=== PATIENT | male | born 1950 | race Caucasian/White ===

== ENCOUNTER 2021-03-09 12:41 | Emergency (ER) | payer MEDICARE, OTHER ==
[~2021-03-09] VITALS: Ht 182.9 cm; Wt 102.2 kg
[2021-03-09 12:45] VITALS: BP 133/75
[2021-03-09] MEDS ORDERED: methylPREDNISolone SOD SUCC PF 125 MG/2 ML VIAL. IV ONE (13:00)
[2021-03-09] MEDS ORDERED: IV NORMAL SALINE 1000ML BAG 1,000 ML IV ONE (13:00)
[2021-03-09] MEDS ORDERED: FAMOTIDINE 20 MG/2 ML VIAL IVP ONE (13:30)
--- NOTE | 2021-03-09 15:03 | PHYS DOC ---
Past Medical History Past Surgical History: No Surgical History Smoking Status: Unknown if ever smoked Alcohol Use: None General Adult EDM: Chief Complaint: ALLERGIC REACTION HPI: HPI: Patient is a 71 year old male patient who presents to the ED today to be evaluated after being bit by hornets prior to coming to the ED. Patient states he got released on the right wrist and bilateral ears. Patient denies any symptoms in the ED but states when EMS arrived he was diaphoretic. He was given Benadryl. He states his mouth is dry after the Benadryl. Patient denies any difficulty breathing, throat or tongue swelling Review of Systems: Review of Systems: Constitutional: Denies fever or chills. [] Eyes: Denies change in visual acuity. [] HENT: Denies nasal congestion or sore throat. [] Respiratory: Reports being bit by hornets. Denies cough or shortness of breath. [] Cardiovascular: Denies chest pain or edema. [] GI: Denies abdominal pain, nausea, vomiting, bloody stools or diarrhea. [] : Denies dysuria. [] Musculoskeletal: Denies back pain or joint pain. [] Integument: Reports bites to bilateral ears and the right wrist Neurologic: Denies headache, focal weakness or sensory changes. [] . [] Psychiatric: Denies depression or anxiety. [] Heart Score: C/O Chest Pain: N/A Risk Factors: Risk Factors: DM, Current or recent (<one month) smoker, HTN, HLP, family history of CAD, obesity. Risk Scores: Score 0 - 3: 2.5% MACE over next 6 weeks - Discharge Home Score 4 - 6: 20.3% MACE over next 6 weeks - Admit for Clinical Observation Score 7 - 10: 72.7% MACE over next 6 weeks - Early Invasive Strategies Current Medications: Current Medications Medications (Trade) Dose Ordered Sig/Yessica Start Time Stop Time Status Last Admin Dose Admin Famotidine (Pepcid Vial) 20 mg 1X ONCE 03/09/21 13:30 03/09/21 13:31 DC 03/09/21 12:58 20 MG Methylprednisolone Sodium Succinate (SOLU-Medrol 125MG VIAL) 125 mg 1X ONCE 03/09/21 13:00 03/09/21 13:01 DC 03/09/21 12:55 125 MG Sodium Chloride 1,000 ml @ 1,000 mls/hr 1X ONCE 03/09/21 13:00 03/09/21 13:59 DC 03/09/21 12:56 1,000 MLS/HR Allergies: Allergies: Allergies Coded Allergies Type Severity Reaction Last Updated Verified No Known Drug Allergies 03/09/21 No Physical Exam: PE: Constitutional: Well developed, well nourished, no acute distress, non-toxic appearance. [] HENT: Normocephalic, atraumatic, bilateral external ears normal, oropharynx moist, no oral exudates, nose normal. Airway is open, no throat pain or lip swelling. Eyes: PERRLA, EOMI, conjunctiva normal, no discharge. [] Neck: Normal range of motion, no tenderness, supple, no stridor. [] Cardiovascular:Heart rate regular rhythm, no murmur [] Lungs & Thorax: Bilateral breath sounds clear to auscultation [] Abdomen: Bowel sounds normal, soft, no tenderness, no masses, no pulsatile masses. [] Skin: Slight redness noted to bilateral helix and pinna in the right scaphoid region. Back: No tenderness, no CVA tenderness. [] Extremities: No tenderness, no cyanosis, no clubbing, ROM intact, no edema. [] Neurologic: Alert and oriented X 3, normal motor function, normal sensory function, no focal deficits noted. [] Psychologic: Affect normal, judgement normal, mood normal. [] Current Patient Data: Vital Signs: Vital Signs Date Time Temp Pulse Resp B/P (MAP) Pulse Ox O2 Delivery O2 Flow Rate FiO2 03/09/21 12:45 97.6 75 18 133/75 (94) 97 Room Air 97.6 EKG: EKG: [] Radiology/Procedures: Radiology/Procedures: [] Course & Med Decision Making: Course & Med Decision Making Pertinent Labs and Imaging studies reviewed. (See chart for details) This a 71-year-old male patient presented to the ED today after being bit by hornets. Patient was diaphoretic when this happened, was given Benadryl on the scene. Arrives in the ED complaining of dry mouth otherwise airways open, no throat or tongue swelling. Lungs are clear. O2 sats at 97% on room air, blood pressure 130s over 70s. Patient was given Solu-Medrol, Pepcid and IV fluids. Currently feeling normal, patient has been observed in the ED for over 2 hours 30 minutes with no symptoms. Discharge to home with prednisone for 4 more days and instructed to take Benadryl and Pepcid as well. Provided return precautions. Jcarlos Disclaimer: Jcarlos Disclaimer: This electronic medical record was generated, in whole or in part, using a voice recognition dictation system. Departure Departure Impression: Primary Impression: Hornet sting Qualified Codes: T63.451A - Toxic effect of venom of hornets, accidental (unintentional), initial encounter Disposition: HOME / SELF CARE / HOMELESS Condition: STABLE Referrals: LARRY THEODORE MD (PCP) follow up in 1 week Patient Instructions: Bee, Wasp, or Hornet Sting Additional Instructions: You were seen in the emergency room after being bit by hornets. Take the prescribed medications as ordered. Consider taking Benadryl at any point you have allergic reaction symptoms including itching, swelling. Come back to the ED at any point symptoms worsen. Scripts Famotidine (FAMOTIDINE) 20 Mg Tablet 20 MG PO DAILY, #4 TAB Prov: VARSHA LUCAS APRN 03/09/21 Prednisone (PREDNISONE) 50 Mg Tablet 1 TAB PO DAILY, #4 TAB Prov: VARSHA LUCAS APRN 03/09/21 VARSHA LUCAS APRN Mar 09, 2021 15:03
[2021-03-09] MEDS ORDERED: FAMO20TA5 PO (15:27)
[2021-03-09] MEDS ORDERED: PRED50TA PO (15:27)
== END 2021-03-09 15:26 | disposition home or self-care (01) ==
LOC: ER 12:41
DX: T63.451A Toxic effect of venom of hornets, accidental (unintentional), initial encounter (principal); T63.411A Toxic effect of venom of centipedes and venomous millipedes, accidental (unintentional), initial encounter; Y92.89 Other specified places as the place of occurrence of the external cause
CPT/HCPCS: 96361; 96374; 96375; 99284; J2930; J3490; J7030

== ENCOUNTER 2021-10-29 10:22 | Emergency (ER) | payer MEDICARE, OTHER ==
[~2021-10-29] VITALS: Ht 182.9 cm; Wt 99.0 kg
[~2021-10-29 10:22] MED LIST: FAMO20TA5 PO; PRED50TA PO
[2021-10-29 10:42] VITALS: BP 177/85
[2021-10-29] MEDS ORDERED: diazePAM 5 MG TABLET PO ONE (10:45)
--- NOTE | 2021-10-29 10:58 | PHYS DOC ---
Past Medical History Past Surgical History: No Surgical History Smoking Status: Never Smoker Alcohol Use: None Adult General Chief Complaint Chief Complaint: DIZZY/LIGHT HEADED HPI HPI Patient is a 71 year old male presenting to the emergency department for evaluation of vertigo that has been going on for at least the past 2 to 3 days. Patient says that he has a sensation that the room is moving. He tried explaining it to me that he feels like he put on glasses that are not a prescription for him and that he stands up and tries to walk and everything is moving and feeling abnormal when he tries to ambulate. He says that the sympto ms get worse when he moves his head or tries to stand up and walk. He denies any vision changes nausea vomiting confusion unilateral weakness numbness or tingling he says that he saw his primary care provider. And was prescribed a medication for this but he does not know the name of it but he says it has been helping. He says that his primary care provider told him that if he was uncomfortable at all that he should come to the emergency department and get a CT scan of his head to rule out a head bleed. Patient has no headache or head trauma. He is in no acute distress with normal vital signs other than hypertension noted. Review of Systems Review of Systems Constitutional: Denies fever or chills [] Eyes: Denies change in visual acuity, redness, or eye pain [] HENT: Denies nasal congestion or sore throat [] Respiratory: Denies cough or shortness of breath [] Cardiovascular: No additional information not addressed in HPI [] GI: Denies abdominal pain, nausea, vomiting, bloody stools or diarrhea [] : Denies dysuria or hematuria [] Musculoskeletal: Denies back pain or joint pain [] Integument: Denies rash or skin lesions [] Neurologic: Denies headache, focal weakness or sensory changes. Positive dizziness All other systems were reviewed and found to be within normal limits, except as documented in this note. Current Medications Current Medications Current Medications Medications (Trade) Dose Ordered Sig/Yessica Start Time Stop Time Status Last Admin Dose Admin Diazepam (Valium) 5 mg 1X ONCE 10/29/21 10:45 10/29/21 10:46 DC 10/29/21 10:57 5 MG Allergies Allergies Allergies Coded Allergies Type Severity Reaction Last Updated Verified No Known Drug Allergies 03/09/21 No Physical Exam Physical Exam Constitutional: Well developed, well nourished, no acute distress, non-toxic appearance. [] HENT: Normocephalic, atraumatic, bilateral external ears normal, oropharynx moist, no oral exudates, nose normal. [] Eyes: PERRLA, EOMI, conjunctiva normal, no discharge. [] Neck: Normal range of motion, no tenderness, supple, no stridor. [] Cardiovascular:Heart rate regular rhythm, no murmur [] Lungs & Thorax: Bilateral breath sounds clear to auscultation [] Abdomen: Bowel sounds normal, soft, no tenderness, no masses, no pulsatile masses. [] Skin: Warm, dry, no erythema, no rash. [] Back: No tenderness, no CVA tenderness. [] Extremities: No tenderness, no cyanosis, no clubbing, ROM intact, no edema. [] Neurologic: Alert and oriented X 3, normal motor function, normal sensory function, no focal deficits noted. [] Psychologic: Affect normal, judgement normal, mood normal. [] Current Patient Data Vital Signs Vital Signs Date Time Temp Pulse Resp B/P (MAP) Pulse Ox O2 Delivery O2 Flow Rate FiO2 10/29/21 10:42 98.1 79 16 177/85 (115) 97 Room Air 98.1 Lab Values Laboratory Tests Test 10/29/21 10:44 White Blood Count 8.7 x10^3/uL (4.0-11.0) Red Blood Count 4.50 x10^6/uL (4.30-5.70) Hemoglobin 13.4 g/dL (13.0-17.5) Hematocrit 38.4 % (39.0-53.0) L Mean Corpuscular Volume 85 fL (79-100) Mean Corpuscular Hemoglobin 30 pg (25-35) Mean Corpuscular Hemoglobin Concent 35 g/dL (31-37) Red Cell Distribution Width 12.5 % (11.5-14.5) Platelet Count 305 x10^3/uL (140-400) Neutrophils (%) (Auto) 78 % (31-73) H Lymphocytes (%) (Auto) 13 % (24-48) L Monocytes (%) (Auto) 7 % (0-9) Eosinophils (%) (Auto) 1 % (0-3) Basophils (%) (Auto) 1 % (0-3) Neutrophils # (Auto) 6.8 x10^3/uL (1.8-7.7) Lymphocytes # (Auto) 1.1 x10^3/uL (1.0-4.8) Monocytes # (Auto) 0.6 x10^3/uL (0.0-1.1) Eosinophils # (Auto) 0.1 x10^3/uL (0.0-0.7) Basophils # (Auto) 0.1 x10^3/uL (0.0-0.2) Sodium Level 139 mmol/L (136-145) Potassium Level 3.8 mmol/L (3.5-5.1) Chloride Level 104 mmol/L (98-107) Carbon Dioxide Level 29 mmol/L (21-32) Anion Gap 6 (6-14) Blood Urea Nitrogen 21 mg/dL (8-26) Creatinine 1.5 mg/dL (0.7-1.3) H Estimated GFR (Cockcroft-Gault) 46.4 BUN/Creatinine Ratio 14 (6-20) Glucose Level 132 mg/dL (70-99) H Calcium Level 9.4 mg/dL (8.5-10.1) Total Bilirubin 0.7 mg/dL (0.2-1.0) Aspartate Amino Transferase (AST) 25 U/L (15-37) Alanine Aminotransferase (ALT) 45 U/L (16-63) Alkaline Phosphatase 95 U/L (46-116) Troponin I High Sensitivity 9 ng/L (4-75) Total Protein 7.3 g/dL (6.4-8.2) Albumin 4.1 g/dL (3.4-5.0) Albumin/Globulin Ratio 1.3 (1.0-1.7) Thyroid Stimulating Hormone (TSH) 1.999 uIU/mL (0.358-3.74) Laboratory Tests 10/29/21 10:44 Laboratory Tests 10/29/21 10:44 EKG EKG Sinus rhythm at 82 bpm with normal axis no ST elevation or depression normal T waves. Radiology/Procedures Radiology/Procedures [] Course & Med Decision Making Course & Med Decision Making I told patient that an intracranial hemorrhage is very unlikely with his presenting symptoms and that most likely has peripheral vertigo given the classic symptoms of a getting worse with movements and the fact that what ever medication he was prescribed which I suspect his meclizine is helping. He said that he took a dose this morning and he was able to ambulate to the room with no difficulty. I told him the pathology that should be ruled out is a central cause such as stroke given he has vascular risk factors of hypertension hyperlipidemia. I told him this would have to be ruled out with an MRI which I cannot order and emergency department and if he wants to have a stroke ruled out he would need to be admitted to the hospital. Patient's work-up came back negative in the emergency department and he continues to say that his vertigo is better and he is basically asymptomatic w hen he is not moving. I told him all incidental findings and need for follow- up. I did recommend admission to the hospital if he wanted to get an MRI to completely rule out a central cause of vertigo and he refused stating that he feels much better and would like to go home and follow-up with his doctor as an outpatient. I told him to continue taking his prescribed medication as it is helping and to keep his follow-up and to come back to emergency department sooner with worsening pain neurologic changes or other general concerns. Patient aware and agreeable with plan and verbalized understanding of the above instructions. Dragon Disclaimer Dragon Disclaimer This electronic medical record was generated, in whole or in part, using a voice recognition dictation system. Departure Departure Impression: Primary Impression: Vertigo Disposition: HOME / SELF CARE / HOMELESS Condition: STABLE Referrals: LARRY THEODORE MD (PCP) Patient Instructions: Vertigo DARNELL RAMIREZ DO October 29, 2021 10:58
[2021-10-29 11:00] LABS: BASO # 0.1 x10^3/uL (0.0-0.2); BASO % 1 % (0-3); EOS # 0.1 x10^3/uL (0.0-0.7); EOS % 1 % (0-3); HEMATOCRIT 38.4 % (39.0-53.0); HEMOGLOBIN 13.4 g/dL (13.0-17.5); LYMPH # 1.1 x10^3/uL (1.0-4.8); LYMPH % 13 % (24-48); MEAN CORPUSCULAR HEMOGLOBIN 30 pg (25-35); MEAN CORPUSCULAR HGB CONC 35 g/dL (31-37); MEAN CORPUSCULAR VOLUME 85 fL (79-100); MONO # 0.6 x10^3/uL (0.0-1.1); MONO % 7 % (0-9); NEUT # 6.8 x10^3/uL (1.8-7.7); NEUT % 78 % (31-73); PLATELET COUNT 305 x10^3/uL (140-400); RED CELL DISTRIBUTION WIDTH 12.5 % (11.5-14.5); WHITE BLOOD COUNT 8.7 x10^3/uL (4.0-11.0)
[2021-10-29 11:15] LABS: CALCIUM 9.4 mg/dL (8.5-10.1); CREATININE 1.5 mg/dL (0.7-1.3); GFR 46.4; POTASSIUM 3.8 mmol/L (3.5-5.1)
[2021-10-29 11:21] LABS: ALBUMIN 4.1 g/dL (3.4-5.0); ALBUMIN/GLOBULIN RATIO 1.3 (1.0-1.7); TOTAL BILIRUBIN 0.7 mg/dL (0.2-1.0); TOTAL PROTEIN 7.3 g/dL (6.4-8.2)
--- NOTE | 2021-10-29 11:26 | RAD ---
CT Head without contrast 10/29/2021 10:43 AM Indication: Vertigo: Comparison: None available Findings: No intracranial hemorrhage is seen. No evidence of acute territorial infarct is seen. Note that CT is limited in sensitivity for acute ischemia. There is patchy periventricular and deep whi te matter hypoattenuation which is nonspecific, but most commonly relates to chronic small vessel dis ease. No abnormal extra axial fluid collection is identified. No mass effect or midline shift is se en. No acute osseous abnormalities are seen. Impression: 1. No acute intracranial process identified 2. Changes of chronic small vessel disease as described CT DOSING PQRS STATEMENT: One or more of the following individualized dose reduction techniques were utilized for this examinat ion: 1. Automated exposure control 2. Adjustment of the mA and/or kV according to patient size 3. Use of iterative reconstruction technique Electronically signed by: Nemesio Longo MD (10/29/2021 11:24 AM) [id number]
--- NOTE | 2021-10-29 11:55 | EKG ---
[facility] [address] [place] [address] Test Date: 2021-10-29 Test Time: 10:38:26 Pat Name: JOSEPH UP Department: Room: Gender: M Chief Communications Officer: : 1950 Requested By: DARNELL RAMIREZ Order Number: [id number] Reading MD: Andre Burns MD Measurements Intervals [place] Rate: 82 P: 0 TX: 170 QRS: 52 QRSD: 110 T: 39 QT: 352 QTc: 414 Interpretive Statements SINUS RHYTHM Electronically Signed On 11-03-2021 9:14:09 CDT by Andre Burns MD
== END 2021-10-29 12:46 | disposition home or self-care (01) ==
LOC: ER 10:22
DX: R42 Dizziness and giddiness (principal); R51.9 Headache, unspecified
CPT/HCPCS: 36415; 70450; 80053; 84443; 84484; 85025; 93005; 99285-25